=== PATIENT | female | born 1990 | race Caucasian/White ===

== ENCOUNTER 2020-05-04 13:41 | Emergency (ER) | payer OTHER, MEDICAID ==
[~2020-05-04] VITALS: Ht 170.2 cm; Wt 176.4 kg
[2020-05-04] MEDS ORDERED: ketorolac tromethamine 15mg/ml inj. IM ONE (16:00)
[2020-05-04 16:07] VITALS: BP 140/96
[2020-05-04] MEDS ORDERED: ORPH100T2 PO (17:35)
[2020-05-04] MEDS ORDERED: IBUP-1984 PO (17:35)
== END 2020-05-04 17:52 | disposition home or self-care (01) ==
LOC: ER 13:41
DX: S13.4XXA Sprain of ligaments of cervical spine, initial encounter (principal); Z88.0 Allergy status to penicillin; Z79.899 Other long term (current) drug therapy; V89.2XXA Person injured in unspecified motor-vehicle accident, traffic, initial encounter; Y93.89 Activity, other specified; Y92.89 Other specified places as the place of occurrence of the external cause; Y99.8 Other external cause status
CPT/HCPCS: 72125; 93005; 96372; 99284; J1885